=== PATIENT | female | born 1975 | race Caucasian/White ===

== ENCOUNTER 2024-08-29 10:31 | Outpatient (REF) | payer MEDICAID, SELFPAY ==
--- NOTE | ~2024-08-29 | XR_ITS ---
EXAMINATIONS: XR KNEE LEFT XR KNEE RIGHT CLINICAL INFORMATION: Knee pain. COMPARISON: None TECHNIQUES: One view of the left knee. Three views of the right knee FINDINGS: Right: Unremarkable. No fracture or dislocation is appreciated. No lytic or sclerotic bony lesion is seen. No periosteal reaction is noted. The joint spaces appear maintained. No suprapatellar effusion is seen. Soft tissues appear unremarkable. Left: Unremarkable. No fracture or dislocation is appreciated. No lytic or sclerotic bony lesion is seen. No periosteal reaction is noted. The joint spaces appear maintained. Soft tissues appear unremarkable. XR/XR knee RT 3V IMPRESSION: Unremarkable plain film examinations of the knees, as above. Electronically signed by: Per Cortez MD 10/16/2024 01:31 PM [facility]ILB[facility] LANZA
--- NOTE | ~2024-08-29 | XR_ITS ---
EXAMINATIONS: XR KNEE LEFT XR KNEE RIGHT CLINICAL INFORMATION: Knee pain. COMPARISON: None TECHNIQUES: One view of the left knee. Three views of the right knee FINDINGS: Right: Unremarkable. No fracture or dislocation is appreciated. No lytic or sclerotic bony lesion is seen. No periosteal reaction is noted. The joint spaces appear maintained. No suprapatellar effusion is seen. Soft tissues appear unremarkable. Left: Unremarkable. No fracture or dislocation is appreciated. No lytic or sclerotic bony lesion is seen. No periosteal reaction is noted. The joint spaces appear maintained. Soft tissues appear unremarkable. XR/XR knee LT 1V IMPRESSION: Unremarkable plain film examinations of the knees, as above. Electronically signed by: Per Cortez MD 10/16/2024 01:31 PM [facility] LAN[facility]
== END 2024-08-29 10:32 | disposition home or self-care (01) ==
LOC: HO.HOSX 10:31
PROVIDERS: Visit Provider Physician Assistant
DX: M25.562 Pain in left knee (principal); M17.0 Bilateral primary osteoarthritis of knee
CPT/HCPCS: 73560; 73562; 99212

== ENCOUNTER 2024-08-29 14:56 | Outpatient (AMB) | payer MEDICAID, SELFPAY ==
--- NOTE | 2024-08-29 15:05 | MHC.OFFVIS ---
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 Patient reports that she woke up with knee pain and has been present for about a month. Denies injury. Her pain is mostly located at the medial and at times the lateral aspect of knee. She decribes her pain as a burning sensation. She has intermittent swelling as well as numbness and tingling. Her pain increases with walking and stair use. Finds support with knee bracing. Finds little relief with Aleve and Tylenol. 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 She denies any knee injury however she reports she woke up with pain. She currently states she has burning sensation and constant pain at the medial aspect and lateral aspect of her knee. Her pain is aggravated with stair use and prolonged walking. She also reports numbness and tingling in her knee. She finds mild relief with Aleve and Tylenol. [facility] Social History (Updated 08/29/24 @ 15:15 by BLESSING Valverde) Patient Tobacco Use Status: Never used Tobacco Current occupational status: unemployed Review of Systems Const All systems reviewed & are unremarkable except as noted in HPI and below Physical Exam Vital Signs: BMI result Body Mass Index 18.5 Const General: cooperative, healthy appearing, comfortable, no acute distress, well developed and alert Orientation/consciousness: patient oriented x3 HEENT Head: Yes normal to inspection, Yes normocephalic and Yes atraumatic Eyes General: appearance normal, both eyes and all related structures Resp Effort & Inspection: normal respiratory effort and able to speak in complete sentences Cardio Rate: regular rate Peripheral pulses: Peripheral pulses 2+ throughout GI Palpation (GI): Soft to palpation Skin Lesions: no lesions Rashes: no rashes Neuro General: patient oriented x3 Extrem Other: Right knee: Skin intact, no erythema or joint effusion. Retropatellar tenderness present. Full ROM with crepitus. Positive patellar grind. Negative Larissa?s. No ligamentous laxity. NVI. Results Reviewed Results Reviewed: Xrays were obtained in the office today and personally reviewed by me of the left knee show mil pf oa Assessment & Plan Assessment & Plan (1) Osteoarthritis of left knee: Code(s): M17.12 - Unilateral primary osteoarthritis, left knee Category: Medical Plan We discussed options which include PT, NSAIDs and injections. The patient will defer on the injection today and proceed with PT and NSAIDs. If symptoms persist, she will contact me for an injection, otherwise, PRN. Orders: Orders XR knee LT 1V 08/29/24 M25.562 - Pain in left knee XR knee RT 3V 08/29/24 M17.11 - Unilateral primary osteoarthritis, right knee Patient Instructions: Scribed for Sandra Powers PA-C, by Mark Mooney medical office technician, on 08/29/2024 at 3:00 PM EST.? I, Sandra Powers PA-C, have personally reviewed and agree with the information entered by the scribe. Coding Level of Care Code New Pt Level 3 (88627) Complex EM visit Add On G2211 Diagnoses Osteoarthritis of left knee M17.12
[2024-08-29 15:13] VITALS: BMI 18.5
== END 2024-08-29 15:54 | disposition home or self-care (01) ==
PROVIDERS: PCP Physician Assistant; Visit Provider Physician Assistant
DX: M17.12 Unilateral primary osteoarthritis, left knee (principal)
CPT/HCPCS: 99203

== ENCOUNTER 2024-12-10 10:59 | Outpatient (RCR) | payer MEDICAID, SELFPAY ==
--- NOTE | 2024-10-16 17:07 | MHC.PT.EP ---
[facility] [place] Office [place] Office [place] Office [address] [phone] F: [phone] F: [phone] F: [phone] F: [phone] Physical Therapy Plan of Care Date of Evaluation: 10/16/24 Date of Surgery: Diagnosis: Osteoarthritis of right knee (MD Dx) PFPS vs meniscus involvement Diff Dx (PT considerations) RS Assessment: Yuliana is a 48 yo Nepali speaking female who was referred by Sandra Powers PA-C for Dx of Osteoarthritis of RIGHT knee. PT question is meniscal involvement vs PFPS, more differential diagnosis will be performed in subsequent visits as pain and muscle guarding made this difficult to assess today. Impairments include decreased right knee ROM, decreased quad and glute strength, antalgic gait pattern with AD And brace use, and TTP around knee joint resulting in their inability to bend, squat, or navigate stairs without pain. These deficits are impacting their ability to participate in household ADLs and community ambulation. Pt will benefit from skilled PT to address impairments and meet their goals. Frequency and Duration: The patient will be seen 2x/week for 4 weeks Short Term Goals: 2 weeks Patient will be able to perform HEP to independently manage condition. Patient will be able to demonstrate correct usage of crutch on left side during stair navigation to decrease pain. Custodial Goals: 4 weeks Patient will increase knee flexion ROM to 115 degrees to be able to ambulate 50 ft without limitation. Patient will increase right quad strength to 4/5 to be able to navigate stairs without limitation. Treatment Plan: Modalities to reduce pain, spasms and effusion. Manual therapy to restore motion and function. Therapeutic exercise to improve strength and flexibility. Neuromuscular re-education for posture and balance. Therapeutic activities to return to functional activities of daily living. Electronically signed by: Osvaldo Wang, PT, DPT Please sign and return to therapist. Thank you for your referral.
--- NOTE | 2025-01-17 09:39 | MHC.PT.DC ---
[facility] [place] Office [place] Office [place] Office [address] [phone] F: [phone] F: [phone] F: [phone] F: [phone] Physical Therapy Discharge Report Diagnosis: Osteoarthritis of right knee (MD Dx) PFPS vs meniscus involvement Diff Dx (PT considerations) RS Date of Surgery: Date of Evaluation: 10/16/24 Date of Discharge: 01/17/25 Treatments to Date: 9 Cancellations to Date: 3 No Shows to Date: 3 Discharge Status: Independent with HEP Patient Elected to Stop Visit Non-compliance Discharge Summary: Yuliana demonstrated improvement with PT interventions for her knee symptoms and showed independence with HEP. Het last PT session that she attended was on 12/10/24 and the assessment reads, Due to a few weeks without PT she is exhibiting compensatory gait pattern again with knee in slight flexion throughout entire gait cycle. She comes in using one crutch and knee brace on R knee. She notes only using brace to go out, not in her home. She is tight with tenderness in hamstring muscle belly, due to overuse and dominant hamstring vs quadriceps. She presents with full AROM in her knee now but needs more PT for quad strengthening and endurance. She no showed to her last few PT sessions and is therefore discharged from PT for non-compliance. Electronically signed by: Osvaldo Wang, PT, DPT Please sign and return to therapist. Thank you for your referral.
== END 2025-01-17 09:39 | disposition home or self-care (01) ==
LOC: HO.PT 10:59
PROVIDERS: PCP Physician Assistant; Visit Provider Physician Assistant
DX: M17.11 Unilateral primary osteoarthritis, right knee (principal)
CPT/HCPCS: 97110; 97116; 97140; 97161; 97530

== ENCOUNTER 2025-10-17 09:14 | Outpatient (REF) | payer MEDICAID, SELFPAY ==
--- NOTE | ~2025-10-17 | XR_ITS ---
EXAMINATION: XR KNEE, RIGHT CLINICAL INFORMATION: M17.11 - Unilateral primary osteoarthritis, right knee COMPARISON: X-ray 08/29/2024 TECHNIQUE: Two views of the right knee. AP bilateral knees one view FINDINGS: Right knee: No fracture or joint effusion. Alignment is anatomic. Mild patellofemoral joint space narrowing.. No abnormal soft tissue calcification. Left knee: Femoral-tibial joint space is maintained. No acute findings XR/XR knee RT 3V IMPRESSION: Right knee: No acute findings Mild patellofemoral joint space narrowing. Electronically signed by: Salinas Jeffries MD 10/17/2025 04:47 PM EST
== END 2025-10-17 09:15 ==
LOC: HO.HOSX 09:14
PROVIDERS: Visit Provider Physician Assistant
DX: M17.11 Unilateral primary osteoarthritis, right knee (principal); M22.2X1 Patellofemoral disorders, right knee; Z79.1 Long term (current) use of non-steroidal anti-inflammatories (NSAID)
CPT/HCPCS: 73562

== ENCOUNTER 2025-10-17 11:58 | Outpatient (AMB) | payer MEDICAID, SELFPAY ==
--- NOTE | 2025-10-17 12:11 | MHC.OFFVIS ---
Vital Signs 10/17/25 12:19 Height 5 ft 1 in Weight 110 lb BMI 20.8 Intake Visit Reasons: OV - Right knee pain Intake Note: Yuliana is a 49 year old female who presents today for a follow up visit of her Right Knee Pain. She was last seen over a year ago where physical therapy was ordered and injections were discussed but patient was not interested in injections at the time. She did complete therapy with [facility]. At today's visit she states that her right knee is still in pain. She noted that the right knee pain is now radiating into the the back of her thigh. Patient reports that the right knee pain is a constant sharp stabbing sensation due to over use, she noted that she lives on the fourth floor. Patient does not want injections but she would like to be referred to physical therapy. Transportation Dispatcher Required: Yes Transportation Dispatcher Services: Transportation Dispatcher Present Transportation Dispatcher Name: AKILAH Lopez [id number] Allergies No Known Allergies Allergy (Verified 08/29/24 15:14) Medication List - Last Reconciled 10/17/25 by Sandra Powers PA-C albuterol sulfate 90 mcg/actuation (Ventolin HFA) 2 puffs inhalation Q4H PRN budesonide-formoterol 80-4.5 mcg/actuation (Symbicort) 1 puff inhalation BID cholecalciferol (vitamin D3) (Vitamin D3) 25 mcg PO DAILY gabapentin 300 mg PO QPM loratadine 10 mg PO DAILY PRN meclizine 25 mg PO BID PRN mirtazapine 15 mg PO BEDTIME naproxen 375 mg PO BID HPI Comments Details: History of Present Illness The patient is a 49 year old female presenting for a follow-up visit for right knee pain. She was seen last year for the same issue, at which time physical therapy was ordered. The patient reports she attended physical therapy twice but did not have a good outcome. She experiences constant pain in the right knee, which she attributes to arthritis, and notes discomfort behind the kneecap with activities such as bending and squatting. She is aware of the option for a cortisone injection, which was discussed at her last visit. Social History - Substance Use: The patient uses alcohol. [facility] Social History (Updated 08/29/24 @ 15:15 by BLESSING Valverde) Patient Tobacco Use Status: Never used Tobacco Current occupational status: unemployed Review of Systems Narrative Review of Systems - Musculoskeletal: Reports constant pain in the right knee secondary to arthritis. - Reports pain behind the kneecap. - Reports foot pain associated with physical therapy exercises. Physical Exam Exam Exam: Physical Exam Vital Signs: BMI result Body Mass Index 20.8 Const General: cooperative, healthy appearing, comfortable, no acute distress, well developed and alert Orientation/consciousness: patient oriented x3 HEENT Head: Yes normal to inspection, Yes normocephalic and Yes atraumatic Eyes General: appearance normal, both eyes and all related structures Resp Effort & Inspection: normal respiratory effort and able to speak in complete sentences Cardio Rate: regular rate Peripheral pulses: Peripheral pulses 2+ throughout GI Palpation (GI): Soft to palpation Skin Lesions: no lesions Rashes: no rashes Neuro General: patient oriented x3 Extrem Other: Right knee: Skin intact, no erythema or joint effusion. Retropatellar tenderness present. Full ROM with crepitus. Positive patellar grind. Negative Larissa?s. No ligamentous laxity. NVI. Results Reviewed Results Reviewed: Xrays were obtained in the office today and personally reviewed by me of the rt knee show [facility] pf oa Assessment & Plan Assessment & Plan (1) Patellofemoral disorders, right knee: Code(s): M22.2X1 - Patellofemoral disorders, right knee Category: Medical Plan Plan 1. Arthritis Of The Right Knee The patient presents for a follow-up of right knee pain due to arthritis. A prior course of physical therapy was not beneficial. The pain is thought to be from irritation and inflammation behind the kneecap. A cortisone injection was offered to reduce inflammation, but the patient expressed fear about the procedure. Alternatives including continued home exercises, a topical cream, and an oral medication (Celebrex) were discussed. The patient opted for a trial of oral medication. A prescription for Celebrex will be sent to the pharmacy, with instructions to take it daily for 2 weeks. If the pain continues, she is to call and schedule an appointment to receive a cortisone injection. Consent Patient was informed and verbally consented to the use of an ambient scribe for clinic note documentation during this visit. Orders: Orders XR knee RT 3V Today M17.11 - Unilateral primary osteoarthritis, right knee Medications: New celecoxib (Celebrex) 200 mg PO BID 28 caps 0RF 14 days Coding Level of Care Code Est Pt Level 3 (79695) Add On Problem Visit Only Diagnoses Patellofemoral disorders, right knee M22.2X1
[2025-10-17 12:19] VITALS: BMI 20.8
--- OUTSIDE RECORDS SUMMARY | 2025-10-17 17:14 | XMS_ITS | Clinical Summary ---
Author Organization [employer] Address [address] [place] [address] Care Team Providers Care Siebel Architect Name Role Phone Unavailable Primary Care Provider Unavailabl e Social History Tobacco Use Types Packs/Day Years Used Date Smoking Tobacco: Never Assessed Comments Unknown Sex and Gender Information Value Date Recorded Sex Assigned at Not on file Legal Sex Female 9:20 PM EDT Gender Identity Not on file Sexual Orientation Not on file Plan of Treatment Health Maintenance Due Date Last Done Comments CT Colonography 1977 Colonoscopy 1977 Depression Screening 1977 FIT 1977 SDOH Screening 1977 Sigmoidoscopy 1977 Disability Screening 1977 Alcohol/Substance Use Screening 1989 Tobacco Screening 1989 Family Planning (PISQ) 1992 Hepatitis C Screening 1995 Pap Smear 1998 Cervical Cancer Screening 2007 HPV/Cotest 2007 Mammogram 2017 FOBT 04/26/2025 04/26/2024 COVID-19 Vaccine ( season) 2025 12/17/2021, 11/17/2021 Influenza Vaccine (#1) 2025 07/31/2024, 2020 Colorectal Cancer Screening 04/26/2027 FIT DNA/Cologuard 04/26/2027 04/26/2024 Zoster Vaccines (1 of 2) 2027 DTaP/Tdap/Td Vaccines (2 - Td or Tdap) 04/26/2029 04/26/2019 RSV Patients and Patients Aged 60 years or older (1 - 1-dose 75+ series) 2052 Hepatitis A Vaccines Aged Out 02/17/2022, 08/25/2021, 12/31/2015 No longer eligible based on patient's age to complete this topic Hepatitis B Vaccines Completed 02/17/2022, 08/25/2021, 12/31/2015 Pneumococcal Vaccine: Pediatrics (0 to 5 Years) and At-Risk Patients (6 to 49) Years Completed 02/29/2024, 02/17/2022 HIV Screening Completed 12/09/2024, 02/05, 02/16/2023, Additional history exists HIB Vaccines Aged Out No longer eligi ble based on patient's age to complete this topic HPV Vaccines Aged Out No longer eligi ble based on patient's age to complete this topic IPV Vaccines Aged Out No longer eligi ble based on patient's age to complete this topic Meningococcal B Vaccine Aged Out No l onger eligible based on patient's age to complete this topic Meningococcal Vaccine Aged Out No bayron lamont eligible based on patient's age to complete this topic RSV under 20 months Aged Out No longe r eligible based on patient's age to complete this topic Rotavirus Vaccines Aged Out No longer eligible based on patient's age to complete this topic
--- OUTSIDE RECORDS SUMMARY | 2025-10-17 17:14 | XMS_ITS | Clinical Summary ---
Author Organization [facility] Address [address] [place] [address] Care Team Providers Care Electrotyper Name Role Phone Unavailable Primary Care Provider Unavailabl e Family History Relation Name Status Comments Aunt cholecystectomy Brother cholecystectomy Social History Tobacco Use Types Packs/Day Years Used Date Smoking Tobacco: Never Alcohol Use Standard Drinks/Week Comments Yes 0 (1 standard drink = 0.6 oz pur e alcohol) Comments Unknown Sex and Gender Information Value Date Recorded Sex Assigned at Not on file Legal Sex Female 8:17 PM EST Gender Identity Not on file Sexual Orientation Not on file Plan of Treatment Health Maintenance Due Date Last Done Comments Breast Cancer Screening 1977 Colorectal Cancer Screening: Colonoscopy 1977 DTaP,Tdap,and Td Vaccines (1 - Tdap) 1996 Hepatitis B Vaccines (1 of 3 - 19+ 3-dose series) 1996 Cervical Cancer Screening: P ap Smear 1998 HIV Screening 10/08/2022 Hepatitis C Screening 10/08/2022 Social Influencers of Health Screening 10/08/2022 Depression Screening 11/06/2024 COVID-19 Vaccine (1 - 2024-2 6 season) 2025 Influenza Vaccine (#1) 2025 RSV Immunization Adult Patie nts (1 - 1-dose 75+ series) 2052 HIB Vaccines Aged Out No longer eligi ble based on patient's age to complete this topic HPV Vaccines Aged Out No longer eligi ble based on patient's age to complete this topic Hepatitis A Vaccines Aged Out No long er eligible based on patient's age to complete this topic IPV Vaccines Aged Out No longer eligi ble based on patient's age to complete this topic MMR Vaccines Aged Out No longer eligi ble based on patient's age to complete this topic Meningococcal ACWY Vaccine Aged Out N o longer eligible based on patient's age to complete this topic Meningococcal B Vaccine Aged Out No l onger eligible based on patient's age to complete this topic Pneumococcal Vaccine: Pediat rics (0 to 5 Years) and At-Risk Patients (6 to 49 Years) Aged Out No longer eligible b ased on patient's age to complete this topic RSV Immunization Patients Un shanika 20 months Aged Out No longer eligible b ased on patient's age to complete this topic Varicella Vaccines Aged Out No longer eligible based on patient's age to complete this topic
== END 2025-10-17 12:54 | disposition home or self-care (01) ==
LOC: HO.HOS 11:59
PROVIDERS: PCP Physician Assistant; Visit Provider Physician Assistant
DX: M22.2X1 Patellofemoral disorders, right knee (principal)
CPT/HCPCS: 99214

== ENCOUNTER → 2025-10-17 12:01 | Outpatient (BNV) | payer MEDICAID, SELFPAY | PROVIDERS: Visit Provider Radiology Diagnostic Ultrasound | DX: M17.11 Unilateral primary osteoarthritis, right knee (principal) | CPT/HCPCS: 73562 ==